=== PATIENT | male | born 1980 | race Hispanic/Latino ===

== ENCOUNTER 2021-06-05 14:22 | Emergency (ER) | payer OTHER, MEDICAID ==
[~2021-06-05] VITALS: Ht 185.4 cm; Wt 88.5 kg
[2021-06-05 14:35] VITALS: BP 119/83
[2021-06-05] MEDS ORDERED: ALBUTEROL INHALER 90MCG/INH IH PRN (15:00)
[2021-06-05] MEDS ORDERED: ACETAMINOPHEN 500 MG TABLET PO ONE (15:00)
[2021-06-05 16:38] VITALS: BP 116/83
[2021-06-05 16:48] LABS: ABG BASE EXCESS 2.1 mmol/L (-2.0-3.0); ABG HCO3 25.8 mmol/L (21.0-28.0); ABG OXYGEN SATURATION 94.4 % (95.0-99.0); ABG PCO2 38 mmHg (35-48)
[2021-06-05] MEDS ORDERED: FLUT1DIS4 IH (16:54)
[2021-06-05] MEDS ORDERED: D-ME1POW16 PO (16:54)
[2021-06-05] MEDS ORDERED: ALBUHFA IH (16:54)
== END 2021-06-05 17:12 | disposition home or self-care (01) ==
LOC: EDH 14:22
DX: U07.1 COVID-19 (principal); J22 Unspecified acute lower respiratory infection; J12.82 Pneumonia due to coronavirus disease 2019; Z79.899 Other long term (current) drug therapy
CPT/HCPCS: 36600; 71045; 82803; 87635; 87804 ×2; 99284; C9803